=== PATIENT | female | born 1995 | race Caucasian/White ===

== ENCOUNTER 2020-06-30 12:47 | Emergency (ER) | payer OTHER ==
[2020-06-30 13:33] LABS: BILIRUBIN,URINE NEGATIVE (NEGATIVE); GLUCOSE, URINE (UA) NEGATIVE (NEGATIVE); KETONES,URINE (UA) NEGATIVE (NEGATIVE); LEUKOCYTE ESTERASE, URINE NEGATIVE (NEGATIVE); NITRITE,URINE NEGATIVE (NEGATIVE); OCCULT BLOOD,URINE TRACE-INTA (NEGATIVE); PH,URINE 7.5 PH (5.0-7.5); PROTEIN,URINE NEGATIVE (NEGATIVE); UROBILINOGEN,URINE 0.2 (NORMAL) E.U./dL (NORMAL)
[2020-06-30 13:35] LABS: CLARITY,URINE CLEAR (CLEAR)
[2020-06-30 13:36] LABS: HCG UR QUAL POSITIVE
--- NOTE | 2020-06-30 14:05 | ED Physician Documentation ---
PD HPI FEMALE - Stated complaint Stated Complaint: FEMAL - Chief complaint Chief Complaint: UTI - History obtained from History obtained from: Patient - History of Present Illness Timing - onset: Last night Timing - duration: Days (1) Timing - details: Gradual onset, Still present Associated symptoms: Vaginal pain, Vaginal bleeding, Dysuria, Urinary frequency. 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 She believes she may be a few weeks as she had her last menstrual period in May. She was on control and missed her period and then took the test. She has now developed symptoms of vaginal burning and burning with urination and she has slight blood when she wipes. She has a 2 year old daughter that is still breast feeding. She and her have considered termination. Review of Systems Constitutional: denies: Fever Eyes: denies: Decreased vision Ears: denies: Ear pain Nose: denies: Congestion Throat: denies: Sore throat Cardiac: denies: Chest pain / pressure, Palpitations Respiratory: denies: Dyspnea, Cough GI: denies: Abdominal Pain, Nausea, Vomiting : reports: Dysuria, Frequency, Vaginal bleeding. denies: Discharge PD PAST MEDICAL HISTORY - Past Medical History Past Medical History: No Cardiovascular: None Respiratory: None Neuro: None Endocrine/Autoimmune: None GI: None EMPLOYMENT COACH: None : Kidney stones HEENT: None Psych: None Musculoskeletal: None Derm: None - Past Surgical History Past Surgical History: No - Present Medications Home Medications: Ambulatory Orders Medication Instructions Recorded Confirmed No Known Home Medications 06/30/20 06/30/20 - Allergies Allergies/Adverse Reactions: Allergies Allergy/AdvReac Type Severity Reaction Status Date / Time No Known Drug Allergies Allergy Verified 06/30/20 12:51 - Social History Does the pt smoke?: No Smoking Status: Never smoker Does the pt drink ETOH?: No Does the pt have substance abuse?: No - Immunizations Immunizations are current?: Yes PD ED PE NORMAL - Vitals Vital signs reviewed: Yes (normal ) - General General: Alert and oriented X 3, No acute distress, Well developed/nourished - HEENT HEENT: Atraumatic, PERRL, EOMI - Neck Neck: Supple, no meningeal sign, No bony TTP - Cardiac Cardiac: RRR, No murmur - Respiratory Respiratory: No respiratory distress, Clear bilaterally - Abdomen Abdomen: Normal bowel sounds, Soft, Non tender, Non distended, No organomegaly - Back Back: No CVA TTP, No spinal TTP - Derm Derm: Normal color, Warm and dry, No rash - Extremities Extremities: No deformity, No edema - Neuro Neuro: Alert and oriented X 3, drag seiner 2-12 intact, No motor deficit, No sensory deficit, Normal speech Eye Opening: Spontaneous Motor: Obeys Commands Verbal: Oriented GCS Score: 15 - Psych Psych: Normal mood, Normal affect Results - Vitals Vitals: Vital Signs - 24 hr 06/30/20 06/30/20 06/30/20 12:52 14:12 14:13 Temperature 36.9 C 36.9 C Heart Rate 98 82 Respiratory 16 18 Rate Blood Pressure 116/67 110/74 O2 Saturation 98 100 Oxygen O2 Source Room air - Labs Labs: Laboratory Tests 06/30/20 13:20 Urine Color DARK YELLOW Urine Clarity CLEAR Urine pH 7.5 Ur Specific [place] 1.020 Urine Protein NEGATIVE Urine Glucose (UA) NEGATIVE Urine Ketones NEGATIVE Urine Occult Blood TRACE-INTA Urine Nitrite NEGATIVE Urine Bilirubin NEGATIVE Urine Urobilinogen 0.2 (NORMAL) Ur Leukocyte Esterase NEGATIVE Ur Microscopic Review NOT INDICATED Urine Culture Comments NOT INDICATED Urine HCG, Qual POSITIVE Procedures - Bedside sono Bedside sono by EMP: With use of bedside ultrasound the pelvis is imaged and there is a viable single fetus measuring 9 weeks 4 days by crown-rump length with a heart rate of 156. PD MEDICAL DECISION MAKING - ED course Complexity details: reviewed results, re-evaluated patient, considered differential, d/w patient ED course: 24-year-old female with symptoms of urinary tract infection has a normal- appearing urine she does have some blood on the tissue when she wipes and she is almost 10 weeks . She does have a viable fetus and she is considering termination. We have given her instructions for threatened miscarriage and have referred her back to her EMPLOYMENT COACH doctor. Departure - Departure Disposition: Home, Self Care Clinical Impression: Threatened affecting intrauterine Condition: Stable Instructions: ED Miscarriage Poss Follow-Up: Timothy Guillen MD [Provider Admit Priv/Credential] - Discharge Date/Time: 06/30/20 15:06
[2020-06-30 14:13] VITALS: BP 110/74
== END 2020-06-30 15:06 | disposition home or self-care (01) ==
LOC: ED 12:47
DX: O20.0 Threatened abortion (principal); Z3A.09 9 weeks gestation of pregnancy
CPT/HCPCS: 36415; 81001; 81003; 81025; 87086; 99283; 99284